=== PATIENT | male | born 1990 | race Two or more races ===

== ENCOUNTER 2018-11-02 14:39 | Emergency (ER) | payer SELFPAY ==
[~2018-11-02] VITALS: Ht 175.3 cm; Wt 77.3 kg
[2018-11-02] MEDS ORDERED: KETOROLAC TROMETHAMINE 60 MG/2 ML VIAL IM ONE (17:45)
[2018-11-02 18:42] VITALS: BP 135/82
[2018-11-03] MEDS ORDERED: IBUP-2070 PO (02:03)
== END 2018-11-02 18:44 | disposition home or self-care (01) ==
LOC: EMS 14:43
DX: M54.6 Pain in thoracic spine (principal); M54.2 Cervicalgia; F15.90 Other stimulant use, unspecified, uncomplicated
CPT/HCPCS: 96372; 99283; J1885

== ENCOUNTER 2018-11-03 01:40 | Emergency (ER) | payer SELFPAY ==
[~2018-11-03] VITALS: Ht 172.7 cm; Wt 79.5 kg
[2018-11-03] MEDS ORDERED: IBUP-2070 PO (02:03)
[2018-11-03] MEDS ORDERED: LORazepam 2 MG/ML VIAL IM ONE (03:30)
[2018-11-03] MEDS ORDERED: KETOROLAC TROMETHAMINE 60 MG/2 ML VIAL IM ONE (03:30)
[2018-11-03] MEDS ORDERED: CYCLOBENZAPRINE HCL 10 MG TABLET PO ONE (03:30)
[2018-11-03] MEDS ORDERED: ACETAMINOPHEN 500 MG TABLET PO ONE (04:30)
[2018-11-03 04:58] VITALS: BP 140/91
== END 2018-11-03 05:29 | disposition home or self-care (01) ==
LOC: EMS 01:40
DX: M62.838 Other muscle spasm (principal); F15.90 Other stimulant use, unspecified, uncomplicated
CPT/HCPCS: 72040; 96372; 99283; J1030; J1885; J2060

== ENCOUNTER 2019-05-21 23:20 | Emergency (ER) | payer SELFPAY ==
[~2019-05-21 23:20] MED LIST: IBUP-2070 PO
== END 2019-05-21 23:40 | disposition left against medical advice (07) ==
LOC: EMS 23:21
DX: M54.2 Cervicalgia (principal); Z53.21 Procedure and treatment not carried out due to patient leaving prior to being seen by health care provider

== ENCOUNTER 2019-05-22 00:52 | Emergency (ER) | payer SELFPAY ==
[~2019-05-22] VITALS: Ht 175.3 cm; Wt 81.8 kg
[2019-05-22] MEDS ORDERED: CYCLOBENZAPRINE HCL 10 MG TABLET PO ONE (03:30)
[2019-05-22] MEDS ORDERED: LIDOCAINE 5% TRANSDERMAL PATCH TD ONE (03:30)
[2019-05-22 04:13] VITALS: BP 128/89
== END 2019-05-22 04:35 | disposition home or self-care (01) ==
LOC: EMS 00:54
DX: M54.5 Low back pain (principal); F15.90 Other stimulant use, unspecified, uncomplicated

== ENCOUNTER 2025-05-15 17:47 | Emergency (ER) | payer MEDICAID, OTHER ==
[~2025-05-15] VITALS: Ht 175.3 cm; Wt 81.8 kg
[~2025-05-15 17:47] MED LIST changes: +ARIP15TA27 PO; -IBUP-2070 PO
[2025-05-15 17:54] VITALS: BP 126/90; PULSE 131; RESP 18; TEMP 98.8; O2SAT 99
== END 2025-05-15 19:36 | disposition left against medical advice (07) ==
LOC: EMS 17:47
DX: Z76.0 Encounter for issue of repeat prescription (principal); Z53.21 Procedure and treatment not carried out due to patient leaving prior to being seen by health care provider

== ENCOUNTER 2025-06-24 18:18 | Emergency (ER) | payer OTHER ==
[~2025-06-24] VITALS: Ht 175.3 cm; Wt 84.9 kg
[2025-06-24 18:42] VITALS: BP 129/76; PULSE 80; RESP 18; TEMP 97.7; O2SAT 100
[2025-06-24] MEDS: BACITRACIN 28 GM OINTMENT TP ONE (19:27)
[2025-06-24] MEDS: ACETAMINOPHEN 500 MG TABLET PO ONE (19:27)
[2025-06-24 19:29] LABS: COVID AG,FIA SOURCE NASAL SWAB
[2025-06-24 19:48] LABS: SARS-COV2 (COVID) ANTIGEN,FIA Negative (Negative)
[2025-06-24 19:49] LABS: INFLUENZA TYPE A NEGATIVE FOR TYPE A (NEGATIVE); INFLUENZA TYPE B NEGATIVE FOR TYPE B (NEGATIVE)
[2025-06-24 19:55] LABS: PLATELET COUNT (AUTO) 304 K/uL (150-450); RED BLOOD CELL COUNT(AUTO) 4.28 MIL/uL (4.50-5.90); RED CELL DISTRIBUTION WIDTH 13.5 % (11.5-14.5); WHITE BLOOD COUNT (AUTO) 7.7 K/uL (4.5-11.0)
[2025-06-24 20:06] LABS: CALCIUM, TOTAL 8.2 mg/dL (8.8-10.5); CREATININE 0.93 mg/dL (0.60-1.30); GLOMERULAR FILTR. RATE CALC > 60 mL/min (>60); GLUCOSE,RANDOM 95 mg/dL (70-110); SODIUM SERUM 140 mmol/L (136-145); UREA NITROGEN, BLOOD 11 mg/dL (7-18)
[2025-06-24 20:12] LABS: CREATINE KINASE, TOTAL ONLY 257 U/L (39-308)
[2025-06-24 20:15] LABS: TROPONIN I-HIGH SENSITIVITY 8 ng/L (<76)
== END 2025-06-24 21:09 | disposition home or self-care (01) ==
LOC: EMS 18:20
DX: S90.811A Abrasion, right foot, initial encounter (principal); R07.89 Other chest pain; F20.9 Schizophrenia, unspecified; F14.90 Cocaine use, unspecified, uncomplicated; F12.90 Cannabis use, unspecified, uncomplicated; F15.90 Other stimulant use, unspecified, uncomplicated; R06.02 Shortness of breath; Z79.899 Other long term (current) drug therapy; Z20.822 Contact with and (suspected) exposure to COVID-19; X50.1XXA Overexertion from prolonged static or awkward postures, initial encounter; Y93.01 Activity, walking, marching and hiking; Y92.89 Other specified places as the place of occurrence of the external cause; Y99.8 Other external cause status
CPT/HCPCS: 71045; 80048; 82550; 83880; 84484; 85025; 85610; 85730; 87804; 93005; 99285; 36415-L1; 36415-TC

== ENCOUNTER 2025-06-28 05:45 | Emergency (ER) | payer OTHER ==
[~2025-06-28] VITALS: Ht 167.6 cm; Wt 82.3 kg
[2025-06-28 06:28] VITALS: TEMP 98.3
[2025-06-28 06:32] LABS: PLATELET COUNT (AUTO) 375 K/uL (150-450); RED BLOOD CELL COUNT(AUTO) 4.54 MIL/uL (4.50-5.90); RED CELL DISTRIBUTION WIDTH 13.7 % (11.5-14.5); WHITE BLOOD COUNT (AUTO) 8.2 K/uL (4.5-11.0)
[2025-06-28 06:48] LABS: CALCIUM, TOTAL 8.2 mg/dL (8.8-10.5); CREATININE 0.97 mg/dL (0.60-1.30); GLOMERULAR FILTR. RATE CALC > 60 mL/min (>60); GLUCOSE,RANDOM 88 mg/dL (70-110); SODIUM SERUM 143 mmol/L (136-145); UREA NITROGEN, BLOOD 7 mg/dL (7-18)
[2025-06-28 06:54] LABS: TROPONIN I-HIGH SENSITIVITY 12 ng/L (<76)
[2025-06-28 07:30] VITALS: BP 150/86; PULSE 93; RESP 16; O2SAT 99
[2025-06-28] MEDS: ONDANSETRON 4 MG TABLET PO ONE (08:02)
[2025-06-28] MEDS: IBUPROFEN 600 MG TABLET PO ONE (08:02)
== END 2025-06-28 08:13 | disposition home or self-care (01) ==
LOC: EMS 05:57
DX: R07.89 Other chest pain (principal); F20.9 Schizophrenia, unspecified; Z79.899 Other long term (current) drug therapy
CPT/HCPCS: 99285; 71045; 80048; 84484; 85025; 36415; 93005; G0480; Q0162

== ENCOUNTER 2025-06-28 09:33 | Emergency (ER) | payer OTHER ==
[~2025-06-28] VITALS: Ht 175.3 cm; Wt 81.0 kg
[2025-06-28 10:54] VITALS: BP 133/89; PULSE 98; RESP 18; TEMP 97.7; O2SAT 98
[2025-06-28] MEDS: FAMOTIDINE 20 MG TABLET PO ONE (11:35)
[2025-06-28] MEDS: MAG HYDROX/ALUMINUM HYD/SIMETH ES 30 ML SUSPENSION UDCUP PO ONE (11:35)
== END 2025-06-28 14:39 | disposition home or self-care (01) ==
LOC: EMS 09:33
DX: F25.9 Schizoaffective disorder, unspecified (principal); R10.13 Epigastric pain; Z79.899 Other long term (current) drug therapy
CPT/HCPCS: 99284; Z7502; Z7610

== ENCOUNTER 2025-08-01 17:33 | Emergency (ER) | payer OTHER ==
[~2025-08-01] VITALS: Ht 381 cm; Wt 77.3 kg
[2025-08-01 18:00] LABS: COVID AG,FIA SOURCE NASAL SWAB
[2025-08-01 18:19] LABS: SARS-COV2 (COVID) ANTIGEN,FIA Negative (Negative)
[2025-08-01] MEDS: LORazepam 2 MG/ML VIAL IM ONE (18:23)
[2025-08-01 19:53] LABS: PLATELET COUNT (AUTO) 348 K/uL (150-450); RED BLOOD CELL COUNT(AUTO) 4.44 MIL/uL (4.50-5.90); RED CELL DISTRIBUTION WIDTH 13.5 % (11.5-14.5); WHITE BLOOD COUNT (AUTO) 6.2 K/uL (4.5-11.0)
[2025-08-01 19:59] VITALS: TEMP 98.605328
[2025-08-01 20:01] LABS: CALCIUM, TOTAL 8.3 mg/dL (8.8-10.5); CREATININE 0.88 mg/dL (0.60-1.30); GLOMERULAR FILTR. RATE CALC > 60 mL/min (>60); GLUCOSE,RANDOM 134 mg/dL (70-110); SODIUM SERUM 141 mmol/L (136-145); UREA NITROGEN, BLOOD 18 mg/dL (7-18)
[2025-08-01 21:47] VITALS: BP 110/65; PULSE 99; RESP 18; O2SAT 100
== END 2025-08-01 22:10 | disposition short-term general hospital (02) ==
LOC: EMS 17:33
DX: F15.90 Other stimulant use, unspecified, uncomplicated (principal); F20.9 Schizophrenia, unspecified; Z79.899 Other long term (current) drug therapy; Z20.822 Contact with and (suspected) exposure to COVID-19
CPT/HCPCS: 99284; 87426; 80048; 82550; 85025; 36415; 93005; 96372; G0480; J1200; J1630; J2060

== ENCOUNTER 2025-08-18 18:01 | Emergency (ER) | payer OTHER | END 2025-08-18 19:22 | disposition left against medical advice (07) | LOC: EMS 18:01 | DX: R53.1 Weakness (principal); Z53.21 Procedure and treatment not carried out due to patient leaving prior to being seen by health care provider ==